=== PATIENT | female | born 2000 | race Hispanic/Latino ===

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

== ENCOUNTER 2022-07-25 12:33 | Outpatient (CLI) | payer OTHER | END 2022-07-25 12:34 | disposition home or self-care (01) | LOC: BICULT 12:33 | PROVIDERS: ATTEND Family Medicine | DX: Z34.82 Encounter for supervision of other normal pregnancy, second trimester (principal); Z3A.20 20 weeks gestation of pregnancy | CPT/HCPCS: 76805 ==

== ENCOUNTER 2024-05-18 19:55 | Inpatient (IN) | payer OTHER, SELFPAY ==
[2024-05-18] MEDS ORDERED: Ondansetron PF 4 MG/2 ML Vial ONE (20:09)
[2024-05-18 20:27] LABS: #Basophils 0.07 10x3/uL (0.0-0.2); %Basophils 0.5 % (0.0-1.0); %Eosinophils 3.7 % (0.0-10.0); %Lymphocytes 14.4 % (21.0-51.0); %Monocytes 7.1 % (0.0-10.0); %Neutrophils 73.6 % (42.0-75.0); Hematocrit 44.2 % (36.0-47.0); Hemoglobin 15.3 g/dL (12.0-16.0); Mean Corpuscular HGB CONC 34.6 g/dL (32.0-36.0); Mean Corpuscular Hemoglobin 28.4 pg (27.0-31.0); Mean Platelet Volume 9.2 fL (7.4-10.4); Platelet Count 313 10x3/uL (130-400); RBC Distribution Width 12.2 % (11.5-14.5); Red Blood Cell (RBC) Count 5.39 mill/uL (4.20-5.40)
[2024-05-18] MEDS ORDERED: Ketorolac Tromethamine 30 MG (1 mL) VIAL ONE (20:33)
[2024-05-18 20:36] LABS: BHCG - Serum Negative (NEGATIVE); Pregs Control Background? CLEAR/WHITE (CLR/WHITE); Pregs Control Bar Appear? YES (CONTROL BAR)
[2024-05-18 20:44] LABS: ALT (SGPT) 987 U/L (8-55); AST (SGOT) 834 U/L (5-34); Albumin 3.7 g/dL (3.5-5.0); Alkaline Phosphatase 120 U/L (40-110); Anion Gap 13 mmol/L (10-20); BUN (Urea Nitrogen) 8 mg/dL (7.0-18.7); Bilirubin, Total 2.2 mg/dL (0.2-1.2); Calc. Creatinine Clearance 0 mL/min (70-130); Calcium 9.2 mg/dL (7.8-10.44); Carbon Dioxide 19 mmol/L (22-29); Chloride 108 mmol/L (98-107); Estimated GFR 127; Globulin 3.7 g/dL (2.4-3.5); Glucose 140 mg/dL (70-105); Potassium 3.2 mmol/L (3.5-5.1); Protein, Total 7.4 g/dL (6.0-8.3); Sodium 137 mmol/L (136-145)
[2024-05-18 20:59] LABS: Lipase Greater than 4815 U/L (8-78)
[2024-05-18] MEDS ORDERED: Morphine 4 MG/ML VIAL ONE ×2 (21:17→21:37)
[2024-05-18] MEDS ORDERED: Dextrose 5 %-0.45 % NaCl 1,000 ML IV SCH (23:45)
[2024-05-19] MEDS ORDERED: Sodium Chloride 0.9% 100 ML ONE (00:23)
[2024-05-19] MEDS ORDERED: Piperacillin/Tazobactam 4.5 GM VIAL ONE (00:23)
[2024-05-19] MEDS ORDERED: Piperacillin/Tazobactam 3.375 GM in Sodium Chloride 0.9% 100 ML IVPB SCH (00:30)
[2024-05-19 00:37] LABS: Magnesium 1.7 mg/dL (1.6-2.6)
[2024-05-19] MEDS: Lactated Ringer's 500 ML IV SCH (01:33)
[2024-05-19] MEDS: Lactated Ringer's 1,000 ML IV SCH (01:34)
[2024-05-19] MEDS: Potassium Bicarbonate/Cit Ac 20 MEQ TAB PO SCH (01:34)
[2024-05-19] MEDS: Morphine 4 MG/ML VIAL SLOW IVP PRN (04:45)
[2024-05-19 05:12] VITALS: BMI 28.3
[2024-05-19] MEDS: Piperacillin/Tazobactam 3.375 GM in Sodium Chloride 0.9% 100 ML IVPB SCH (05:58)
[2024-05-19 06:47] LABS: #Basophils 0.04 10x3/uL (0.0-0.2); %Basophils 0.3 % (0.0-1.0); %Eosinophils 1.3 % (0.0-10.0); %Lymphocytes 12.2 % (21.0-51.0); %Neutrophils 80.8 % (42.0-75.0); Hematocrit 38.9 % (36.0-47.0); Hemoglobin 13.3 g/dL (12.0-16.0); Mean Corpuscular HGB CONC 34.2 g/dL (32.0-36.0); Mean Corpuscular Hemoglobin 28.5 pg (27.0-31.0); Mean Corpuscular Volume 83.5 fL (78.0-98.0); Mean Platelet Volume 9.8 fL (7.4-10.4); Platelet Count 259 10x3/uL (130-400); RBC Distribution Width 12.6 % (11.5-14.5); Red Blood Cell (RBC) Count 4.66 mill/uL (4.20-5.40)
[2024-05-19 07:16] LABS: ALT (SGPT) 767 U/L (8-55); AST (SGOT) 443 U/L (5-34); Albumin 3.2 g/dL (3.5-5.0); Alkaline Phosphatase 110 U/L (40-110); Anion Gap 13 mmol/L (10-20); BUN (Urea Nitrogen) 6 mg/dL (7.0-18.7); Calc. Creatinine Clearance 163 mL/min (70-130); Carbon Dioxide 22 mmol/L (22-29); Chloride 109 mmol/L (98-107); Estimated GFR 131; Globulin 2.7 g/dL (2.4-3.5); Glucose 84 mg/dL (70-105); Magnesium 1.6 mg/dL (1.6-2.6); Potassium 3.7 mmol/L (3.5-5.1); Protein, Total 5.9 g/dL (6.0-8.3); Sodium 140 mmol/L (136-145)
[2024-05-19] MEDS: Ondansetron PF 4 MG/2 ML Vial IVP PRN (08:31)
[2024-05-19] MEDS: Heparin 5,000 UNITS/ML VIAL SC SCH (10:14)
[2024-05-19] MEDS: Piperacillin/Tazobactam 3.375 GM VIAL ONE (21:31)
[2024-05-20 05:49] LABS: #Basophils Less than 0.03 10x3/uL (0.0-0.2); %Basophils 0.2 % (0.0-1.0); %Eosinophils 0.8 % (0.0-10.0); %Lymphocytes 13.5 % (21.0-51.0); %Monocytes 6.6 % (0.0-10.0); %Neutrophils 78.4 % (42.0-75.0); Hematocrit 40.9 % (36.0-47.0); Hemoglobin 14.1 g/dL (12.0-16.0); Mean Corpuscular HGB CONC 34.5 g/dL (32.0-36.0); Mean Corpuscular Hemoglobin 28.3 pg (27.0-31.0); Mean Corpuscular Volume 82.1 fL (78.0-98.0); Mean Platelet Volume 9.4 fL (7.4-10.4); Platelet Count 223 10x3/uL (130-400); RBC Distribution Width 12.6 % (11.5-14.5); Red Blood Cell (RBC) Count 4.98 mill/uL (4.20-5.40)
[2024-05-20 06:07] LABS: ALT (SGPT) 508 U/L (8-55); AST (SGOT) 119 U/L (5-34); Albumin 3.3 g/dL (3.5-5.0); Alkaline Phosphatase 115 U/L (40-110); Bilirubin, Direct 0.4 mg/dL (0.1-0.3); Bilirubin, Total 1.1 mg/dL (0.2-1.2); Protein, Total 6.1 g/dL (6.0-8.3)
[2024-05-20 06:20] LABS: Lipase 312 U/L (8-78)
[2024-05-20 06:21] LABS: ALT (SGPT) 500 U/L (8-55); AST (SGOT) 116 U/L (5-34); Albumin 3.2 g/dL (3.5-5.0); Alkaline Phosphatase 111 U/L (40-110); Anion Gap 15 mmol/L (10-20); BUN (Urea Nitrogen) 4 mg/dL (7.0-18.7); Calc. Creatinine Clearance 182 mL/min (70-130); Calcium 8.8 mg/dL (7.8-10.44); Carbon Dioxide 20 mmol/L (22-29); Chloride 105 mmol/L (98-107); Estimated GFR 135; Globulin 3.3 g/dL (2.4-3.5); Glucose 85 mg/dL (70-105); Magnesium 1.6 mg/dL (1.6-2.6); Potassium 3.6 mmol/L (3.5-5.1); Protein, Total 6.5 g/dL (6.0-8.3); Sodium 136 mmol/L (136-145)
[2024-05-20] MEDS ORDERED: Indocyanine Green 25 MG/10 ML VIAL IVP SCH (07:00)
[2024-05-20] MEDS: Magnesium 2 GM/50 ML(in water) 2 GM in Premix 1 BAG IVPB SCH (09:29)
[2024-05-20] MEDS: Morphine 2 MG/ML VIAL SLOW IVP SCH (09:30)
[2024-05-20] MEDS ORDERED: Sodium Chloride 0.9% 100 ML ONE (14:36)
[2024-05-20] MEDS ORDERED: Piperacillin/Tazobactam 3.375 GM VIAL ONE (14:36)
[2024-05-20] MEDS ORDERED: Indocyanine Green 25 MG/10 ML VIAL ONE (15:35)
[2024-05-20] MEDS ORDERED: EPINEPHrine 1 MG/ML VIAL ONE (15:35)
[2024-05-20] MEDS ORDERED: Bupivacaine 0.25% HCL 30 ML VIAL ONE (15:35)
[2024-05-20] MEDS ORDERED: fentaNYL PF 100 MCG/2 ML SYRINGE ONE (15:41)
[2024-05-20] MEDS ORDERED: PROPOFOL 20 ML ONE (15:41)
[2024-05-20] MEDS ORDERED: Lidocaine 1% PF 5 ML VIAL ONE (15:42)
[2024-05-20] MEDS ORDERED: Midazolam HCl 2 mg/2 ml Vial ONE (15:42)
[2024-05-20] MEDS ORDERED: PHENYLEPHRINE-NS 100 MCG/ML 10 ML SYRINGE ONE (16:12)
[2024-05-20] MEDS ORDERED: Rocuronium Bromide 10 MG/ML (10ML VIAL) ONE (16:12)
[2024-05-20] MEDS ORDERED: Ondansetron PF 4 MG/2 ML Vial ONE (16:32)
[2024-05-20] MEDS ORDERED: Dexamethasone 20 MG/5 ML VIAL ONE (16:32)
[2024-05-20] MEDS ORDERED: SUGAMMADEX SODIUM 200 MG/2 ML VIAL ONE (16:46)
[2024-05-20] MEDS ORDERED: fentaNYL 50 mcg/mL 1 mL Vial ONE ×3 (16:52→18:00)
[2024-05-20] MEDS: Indocyanine Green 25 MG/10 ML VIAL IVP SCH (19:59)
[2024-05-21] MEDS ORDERED: Electrolyte Replacement Protocol 1 EACH FS SCH (02:30)
[2024-05-21 02:51] LABS: #Basophils Less than 0.03 10x3/uL (0.0-0.2); #Eosinophils Less than 0.03 10x3/uL (0.0-0.7); %Basophils 0.1 % (0.0-1.0); %Lymphocytes 5.3 % (21.0-51.0); %Monocytes 3.5 % (0.0-10.0); %Neutrophils 90.6 % (42.0-75.0); Hematocrit 37.8 % (36.0-47.0); Hemoglobin 13.6 g/dL (12.0-16.0); Mean Corpuscular Hemoglobin 29.1 pg (27.0-31.0); Mean Corpuscular Volume 80.9 fL (78.0-98.0); Mean Platelet Volume 9.2 fL (7.4-10.4); Platelet Count 236 10x3/uL (130-400); RBC Distribution Width 12.4 % (11.5-14.5); Red Blood Cell (RBC) Count 4.67 mill/uL (4.20-5.40)
[2024-05-21 03:16] LABS: Lipase 81 U/L (8-78); Magnesium 2.2 mg/dL (1.6-2.6)
[2024-05-21 07:01] LABS: Anion Gap 17 mmol/L (10-20); BUN (Urea Nitrogen) 6 mg/dL (7.0-18.7); Calc. Creatinine Clearance 186 mL/min (70-130); Carbon Dioxide 18 mmol/L (22-29); Chloride 109 mmol/L (98-107); Potassium 3.8 mmol/L (3.5-5.1); Sodium 140 mmol/L (136-145)
[2024-05-21 07:02] LABS: Bilirubin, Total 0.7 mg/dL (0.2-1.2); Estimated GFR 135; Glucose 145 mg/dL (70-105); Protein, Total 7.1 g/dL (6.0-8.3)
[2024-05-21 07:03] LABS: ALT (SGPT) 361 U/L (8-55); AST (SGOT) 49 U/L (5-34); Albumin 3.3 g/dL (3.5-5.0); Alkaline Phosphatase 96 U/L (40-110); Globulin 3.8 g/dL (2.4-3.5)
[2024-05-21 08:44] VITALS: BP 117/75; TEMP 97.3
== END 2024-05-21 13:40 | disposition home or self-care (01) | DRG 417 ==
LOC: ERS 19:55 → SURG B 23:57
PROVIDERS: ADMIT Internal Medicine; ATTEND Internal Medicine
PROC: 0FT44ZZ Resection of Gallbladder, Percutaneous Endoscopic Approach (ICD-10-PCS; principal; 2024-05-20)
PROC: 8E0W4CZ Robotic Assisted Procedure of Trunk Region, Percutaneous Endoscopic Approach (ICD-10-PCS; 2024-05-20)
DX: K80.00 Calculus of gallbladder with acute cholecystitis without obstruction (principal); K85.90 Acute pancreatitis without necrosis or infection, unspecified; R18.8 Other ascites; E87.6 Hypokalemia; D73.4 Cyst of spleen
CPT/HCPCS: 36415; 71045; 74176; 74181; 76705; 80053; 83605; 83690; 83735; 84478; 84703; 85025; 88304; 93005; 93010; 96361; 96365; 96375; A6258; C1713; J0171; J0665; J1100; J1644; J1885; J2250; J2272; J2405; J2543; J2704; J3010; J3475; J7120; S2900